=== PATIENT | male | born 2000 | race Caucasian/White ===

== ENCOUNTER 2025-09-20 09:04 | Emergency (ER) | payer MEDICAID ==
[~2025-09-20] VITALS: Ht 165.1 cm; Wt 68.4 kg
[2025-09-20 09:13] VITALS: BP 137/103; PULSE 96; TEMP 97.8; O2SAT 96
--- NOTE | 2025-09-20 09:20 | Physician Documentation ---
History of Present Illness Stated Complaint: EYE PAIN OK to notify your PCP?: Yes Source: patient, RN/MD, RN notes reviewed, old records Mode of Arrival: POV Exam Limitations: no limitations HPI Patient is a very pleasant 25-year-old male that presents to the emergency department for evaluation of foreign body in his eye. Patient reports that he was working on his grandparents toilet last night when he dropped a glass object. Patient feels like a piece of the glass ricocheted and hit him in the eye. Patient reports still feeling like the object is in his eye. Reports attempting to remove the object in flushing his eye last night. Woke up this morning with his eye feeling very sore and red this morning with drainage. Patient denies any other past medical history any medications at this time. Patient denies any visual changes at this time. Medication Reconciliation Allergies: Coded Allergies: No Known Allergies (Unverified , 09/20/25) Review of Systems All Other Systems at this time: Reviewed and Negative Physical Exam Vital Signs: RN Vital Signs have been reviewed: Yes Procedures Procedures After I exam with fluorescein and prilocaine drops I was injected mostly on the lateral canthus area with positive foreign body sensation. Irrigation produced a floating segment of glass. I Dr. Couch then later use a Q-tip swab and generally rubs areas to remove foreign body had improvement in his symptoms but I did not see any glass on the Q-tip swab. The nurse irrigated the eye once again. Resident did the slit-lamp exam. Patient tolerated the procedure without any complications. Progress Results/Orders Reviewed/noted all lab results: Yes Medical Decision Making Additional information obtaine: old records, N/A Findings Eye examination reveals a possible laceration of the left cornea, eye looks injected and eyelids are swollen. I was not able to visualize the foreign body, but given the fact that it is piece of glass, visualization of the might be difficult. Patient continues with foreign body sensation. We rinsed the Ieft eye thoroughly with normal saline and a 5 mm piece of glass came out. Antibiotic and steroid drops were applied. He will continue eyedrops for 5 days. Patient was strongly advised to follow up with an rn forensic. Differential Dx:Considerations: Other (I foreign body, possible cornea laceration) Departure Disposition: HOME / SELF CARE / HOMELESS Impression: Primary Impression: Foreign body in site on external eye Qualified Codes: T15.92XA - Foreign body on external eye, part unspecified, left eye, initial encounter Condition: Stable Discharge Instructions: Foreign Body, Eye Referrals: NO PRIMARY CARE PROVIDER (PCP) Education Educated: Patient Additional Comment Additional Comment Patient was seen and examined, case reviewed, management reviewed and agreement with the resident. Khoa PHILIP Patient was seen and examined. Patient was given reassurance. Patient had some swollen eyes I reviewed the case with the management with the resident and additionally helped with the procedures. Used a Q-tip swab to remove additional foreign bodies. During irrigation the patient did show a sliver shard of glass that was floating in the fluids. So there are glass foreign bodies. Patient has a high-risk for possible complications. Patient was given referral encouraged to see Ophthalmology. I did not see any additional foreign bodies and assumed to have removed some from irrigation and others from the sclera as well as a upper lids. Signature Attestation: The note accurately reflects work and decisions made by me.Shelley Couch MD 09/21/25 06:43 MARGO PICKERING Sep 20, 2025 09:20 SHELLEY COUCH MD Sep 20, 2025 09:37 THERESE BARTON Sep 20, 2025 10:17
[2025-09-20] MEDS: proparacaine 0.5% ophthalmic drops 15ml EACHEYE ONE (10:29)
[2025-09-20] MEDS: ofloxacin 0.33% 5ml ophthalmic drops EACHEYE ONE (11:20)
[2025-09-20] MEDS: prednisoLONE acetate 1% ophth susp 5ml LEFTEYE ONE (11:46)
[2025-09-20 11:52] VITALS: RESP 16
== END 2025-09-20 11:53 | disposition home or self-care (01) ==
LOC: ER 09:05
DX: T15.92XA Foreign body on external eye, part unspecified, left eye, initial encounter (principal); W44.9XXA Unspecified foreign body entering into or through a natural orifice, initial encounter; Y92.89 Other specified places as the place of occurrence of the external cause; Y93.89 Activity, other specified; Y99.8 Other external cause status
CPT/HCPCS: 99284